=== PATIENT | male | born 1955 | race Asian ===

== ENCOUNTER 2021-09-27 10:16 | Emergency (ER) | payer MEDICARE, SELFPAY ==
[2021-09-27 10:32] VITALS: BP 173/77; PULSE 62; RESP 20; TEMP 36.4; O2SAT 99
--- NOTE | 2021-09-27 10:38 | ECG_ITS ---
Measurements Intervals [place] Rate: 60 P: 65 RI: 150 QRS: 1 QRSD: 117 T: 26 QT: 468 QTc: 469 Interpretive Statements SINUS RHYTHM INCOMPLETE RIGHT BUNDLE BRANCH BLOCK VOLTAGE CRITERIA FOR LVH BORDERLINE ECG Electronically Signed On 09-27-2021 18:52:58 CDT by Omar Godinez D.O.
[2021-09-27] MEDS: SODIUM CHLORIDE 0.9% IV 1,000 ML 999 ML IV CONT (10:59)
[2021-09-27] MEDS: ONDANSETRON INJ 4 MG/2 ML VIAL IV PUSH (10:59)
[2021-09-27] MEDS: MECLIZINE HCL 25 MG TABLET PO (11:09)
[2021-09-27 11:27] LABS: Basophils Percent Auto 0.2 % (0.2-1.2); Eosinophils Percent Auto 0.1 % (0-4.4); Hematocrit 44.5 % (42.0-52.0); Hemoglobin 14.8 g/dL (14.0-18.0); Immature Granulocyte Absolute 0.07 K/mm3 (0.00-0.031); Immature Granulocyte Percent A 0.6 % (0-0.5); Lymphocytes Absolute Auto 0.74 K/mm3 (0.9-3.2); Lymphocytes Percent Auto 5.8 % (18.3-44.2); Mean Corpuscular HGB Conc 33.3 g/dl (32-36); Mean Corpuscular Hemoglobin 32.2 pg (26-34); Mean Corpuscular Volume 96.7 fl (80-100); Mean Platelet Volume 11.5 fl (7.4-10.4); Monocytes Absolute Auto 0.7 K/mm3 (0.1-0.6); Monocytes Percent Auto 5.3 % (2.6-8.5); Neutrophils Absolute Auto 11.1 K/mm3 (1.3-6.7); Platelet Count Result 162 k/mm3 (150-375); Red Cell Distribution Width 12.1 % (11.5-14.5); White Blood Count 12.7 K/mm3 (4.5-10.0)
[2021-09-27 11:39] LABS: Alanine Aminotransferase 30 U/L (6-50); Albumin Level 4.4 g/dL (3.5-5.1); Alkaline Phosphatase 68 U/L (38-126); Anion Gap 9 mmol/L (8-16); Aspartate Amino Transferase 31 U/L (17-59); Bilirubin,Total 0.3 mg/dL (0.2-1.3); Blood Urea Nitrogen 19 mg/dL (9-20); Calcium 8.4 mg/dL (8.4-10.2); Carbon Dioxide 24 mmol/L (22-30); Chloride 106 mmol/L (98-107); Estimated CRCL calculation 74 ml/min; Estimated Glomerular Filt Rate > 60; Glucose 177 mg/dL (65-110); Potassium 3.5 mmol/L (3.4-5.0); Sodium 139 mmol/L (137-145)
[2021-09-27 12:00] VITALS: BP 152/82; PULSE 59; RESP 18; O2SAT 100
[2021-09-27 12:50] VITALS: BP 149/86; BP 162/95; BP 181/89; PULSE 68; PULSE 74; PULSE 79
--- NOTE | 2021-09-27 13:24 | ED.DIZZY ---
HPI - Dizziness General Chief Complaint: Dizziness Stated Complaint: dizzy, nausea Time Seen by Provider: 09/27/21 10:40 History of Present Illness HPI Narrative: Patient is a 66-year-old male who presents ER with dizziness and vomiting. Sudden onset while in bed at 8:45 AM. No fevers or chills or sweats. No chest pain or chest pressure. Has history of vertigo in the past and this feels similar. No medications to treat this at home. Vomiting upon arrival. No complaints abdominal discomfort. No focal weakness. Related Data Allergies Allergy/AdvReac Type Severity Reaction Status Date / Time No Known Allergies Allergy Verified 09/27/21 10:56 Review of Systems Review of Systems: All systems reviewed & are unremarkable except as noted in HPI and below Constitutional: Constitutional: Denies chills, Denies fever(s) and Denies weakness ENT: Reports dizziness Comments: Ringing in the right ear Gastrointestinal: Gastrointestinal: Denies abdominal pain, Denies diarrhea, Reports nausea and Reports vomiting Neurologic: Reports dizziness, Denies headache(s), Denies focal weakness and Denies numbness PMFSH Past Medical History Medical History (Updated 09/27/21 @ 13:40 by Uriel Hameed MD) Pleural effusion Vertigo Social History Social History (Updated 09/27/21 @ 13:40 by Uriel Hameed MD) 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 HEAD: Normocephalic, atraumatic. EYES: PERRL and EOMI. ENT: Mucous membranes moist. CHEST: Clear to auscultation. No respiratory distress. HEART: Regular rate and rhythm. Normal peripheral pulses. ABDOMEN: Soft, nontender, nondistended. EXTREMITIES: Normal range of motion. No edema. NEURO: Alert and oriented x3. PSYCH: Normal mood and affect. Course Course Emergency Course: Patient feels much better after fluids and meclizine. Up and ambulatory without issue. No longer vomiting. Feels comfortable with discharge home. Vital Signs Vital signs: Vital Signs Temperature 97.6 F 09/27/21 10:32 Pulse Rate 62 09/27/21 10:32 Respiratory Rate 20 09/27/21 10:32 Blood Pressure 173/77 H 05/08/22 10:32 Pulse Oximetry 99 05/08/22 10:32 Temperature 97.6 F 09/27/21 10:32 Pulse Rate 74 09/27/21 12:50 Respiratory Rate 18 09/27/21 12:00 Blood Pressure 181/89 H 09/27/21 12:50 Pulse Oximetry 100 09/27/21 12:00 MDM - Dizziness Lab Data Result diagrams: 09/27/21 11:16 09/27/21 11:16 Labs: Lab Results 09/27/21 09/27/21 Range/Units 11:16 11:16 WBC 12.7 H (4.5-10.0) K/mm3 RBC 4.60 (4.6-6.20) M/mm3 Hgb 14.8 (14.0-18.0) g/dL Hct 44.5 (42.0-52.0) % MCV 96.7 (80-100) fl MCH 32.2 (26-34) pg MCHC 33.3 (32-36) g/dl RDW 12.1 (11.5-14.5) % Plt Count 162 (150-375) k/mm3 MPV 11.5 H (7.4-10.4) fl Immature Gran % (Auto) 0.6 H (0-0.5) % Neut % (Auto) 88.0 H (45.5-73.1) % Lymph % (Auto) 5.8 L (18.3-44.2) % [place] % (Auto) 5.3 (2.6-8.5) % Eos % (Auto) 0.1 (0-4.4) % Baso % (Auto) 0.2 (0.2-1.2) % Lymph # (Auto) 0.74 L (0.9-3.2) K/mm3 [place] # (Auto) 0.7 H (0.1-0.6) K/mm3 Eos # (Auto) 0.0 (0-0.3) K/mm3 Baso # (Auto) 0.0 (0.0-0.1) K/mm3 Abs Immat Gran (auto) 0.07 H (0.00-0.031) K/mm3 Absolute Neuts (auto) 11.1 H (1.3-6.7) K/mm3 Absolute Nucleated RBC 0.0 (0.0-0.012) K/mm3 Nucleated RBC % 0.0 (0.0-0.2) % Sodium 139 (137-145) mmol/L Potassium 3.5 (3.4-5.0) mmol/L Chloride 106 (98-107) mmol/L Carbon Dioxide 24 (22-30) mmol/L Anion Gap 9 (8-16) mmol/L BUN 19 (9-20) mg/dL Creatinine 0.80 (0.7-1.3) mg/dL Estim Creat Clear Calc 74 ml/min Estimated GFR > 60 (59 - ) Glucose 177 H (65-110) mg/dL Calcium 8.4 (8.4-10.2) mg/dL Total Bilirubin 0.3 (0.2-1.3) mg/dL AST 31 (17-59) U/L ALT
--- NOTE | 2021-09-27 13:35 | PC.NURSE ---
Patient walked without difficulty and in no distress down the [place]ansen. EDP aware at this time.
== END 2021-09-27 13:46 | disposition home or self-care (01) ==
PROVIDERS: Emergency Provider Emergency Medicine
DX: H81.10 Benign paroxysmal vertigo, unspecified ear (principal); I45.10 Unspecified right bundle-branch block; R94.31 Abnormal electrocardiogram [ECG] [EKG]
CPT/HCPCS: 36415; 80053; 85025; 93005; 96361; 96374; 99284; A9270; J2405; J7030